=== PATIENT | female | born 1940 | race Caucasian/White ===

== ENCOUNTER 2018-01-04 05:45 | Day surgery (SDC) | payer OTHER ==
[~2018-01-04 05:45] MED LIST: CARAFATE SU1 G/10 ML PO; CIPRO500 MG PO; EVISTA60 MG PO; FOLIC ACID/B-6/1 TAB PO; LEVSIN/SL0.125 MG PO; NEURIN SL; NEXIUM2.5 MG PO; PROTONIX40 MG PO; SYNTHROID75 MCG PO; XALATAN IO; ZOFRAN ODT4 MG/UDTAB PO
== END 2018-01-04 09:50 | disposition home or self-care (01) ==
LOC: CIR.AMB 05:45
DX: K51.00 Ulcerative (chronic) pancolitis without complications (principal); Z08 Encounter for follow-up examination after completed treatment for malignant neoplasm

== ENCOUNTER 2020-01-31 09:11 | Outpatient (CLI) | payer OTHER | END 2020-01-31 09:17 | disposition home or self-care (01) | LOC: TOM 09:11 | PROVIDERS: ATTEND Surgery | DX: K44.9 Diaphragmatic hernia without obstruction or gangrene (principal) ==

== ENCOUNTER 2020-03-03 09:20 | Outpatient (CLI) | payer OTHER | END 2020-03-03 09:28 | disposition home or self-care (01) | LOC: RAD 09:20 | PROVIDERS: ATTEND Orthopaedic Surgery Sports Medicine | DX: M25.561 Pain in right knee (principal); M25.562 Pain in left knee ==

== ENCOUNTER 2020-03-06 07:25 | Outpatient (CLI) | payer OTHER | END 2020-03-06 07:26 | disposition home or self-care (01) | LOC: NUCLEAR 07:25 | PROVIDERS: ATTEND Internal Medicine Cardiovascular Disease | DX: R06.02 Shortness of breath (principal); I44.7 Left bundle-branch block, unspecified | CPT/HCPCS: 78452; 93017; A9500; J0153 ==

== ENCOUNTER 2020-07-01 07:52 | Outpatient (CLI) | payer OTHER | END 2020-07-01 08:02 | disposition home or self-care (01) | LOC: MAMO-SONO 07:52 | DX: N60.01 Solitary cyst of right breast (principal); Z12.31 Encounter for screening mammogram for malignant neoplasm of breast; R92.0 Mammographic microcalcification found on diagnostic imaging of breast ==

== ENCOUNTER 2020-08-27 06:00 | Day surgery (SDC) | payer OTHER | END 2020-08-27 10:10 | disposition home or self-care (01) | LOC: AMB-ENDOS 06:00 | PROVIDERS: ATTEND Surgery | DX: K52.89 Other specified noninfective gastroenteritis and colitis (principal); Z20.828 Contact with and (suspected) exposure to other viral communicable diseases ==

== ENCOUNTER 2021-03-01 10:36 | Outpatient (CLI) | payer OTHER | END 2021-03-01 10:41 | disposition home or self-care (01) | LOC: RAD 10:36 | PROVIDERS: ATTEND Orthopaedic Surgery Sports Medicine | DX: M25.561 Pain in right knee (principal); M25.562 Pain in left knee ==

== ENCOUNTER 2021-04-12 08:47 | Outpatient (CLI) | payer OTHER | END 2021-04-12 08:56 | disposition home or self-care (01) | LOC: RAD 08:47 | PROVIDERS: ATTEND Internal Medicine Cardiovascular Disease | DX: R10.84 Generalized abdominal pain (principal) ==

== ENCOUNTER 2021-04-13 07:32 | Outpatient (CLI) | payer OTHER | END 2021-04-13 07:34 | disposition home or self-care (01) | LOC: SONOGRAMA 07:32 | PROVIDERS: ATTEND Internal Medicine Cardiovascular Disease | DX: Q61.02 Congenital multiple renal cysts (principal); R10.84 Generalized abdominal pain ==

== ENCOUNTER 2021-05-04 13:43 | Outpatient (CLI) | payer OTHER | END 2021-05-10 07:41 | disposition home or self-care (01) | LOC: LAB 13:43 | PROVIDERS: ATTEND Radiology Diagnostic Radiology | DX: R31.0 Gross hematuria (principal) ==

== ENCOUNTER → 2021-05-10 | Outpatient (CLI) | payer OTHER | END | disposition home or self-care (01) | LOC: TOM 07:15 | PROVIDERS: ATTEND Internal Medicine | DX: Q61.8 Other cystic kidney diseases (principal); I70.8 Atherosclerosis of other arteries; K21.9 Gastro-esophageal reflux disease without esophagitis; K44.9 Diaphragmatic hernia without obstruction or gangrene; R31.0 Gross hematuria; D59.8 Other acquired hemolytic anemias; K51.90 Ulcerative colitis, unspecified, without complications | CPT/HCPCS: 74178; Q9965 ==

== ENCOUNTER 2021-07-06 13:20 | Outpatient (CLI) | payer OTHER | END 2021-07-06 13:31 | disposition home or self-care (01) | LOC: MAMO-SONO 13:20 | DX: N63.11 Unspecified lump in the right breast, upper outer quadrant (principal); N63.12 Unspecified lump in the right breast, upper inner quadrant; Z12.31 Encounter for screening mammogram for malignant neoplasm of breast ==

== ENCOUNTER 2021-09-13 10:19 | Outpatient (CLI) | payer OTHER | END 2021-09-13 13:03 | disposition home or self-care (01) | LOC: RAD 10:19 | PROVIDERS: ATTEND Orthopaedic Surgery Sports Medicine | DX: M25.561 Pain in right knee (principal); M25.562 Pain in left knee ==

== ENCOUNTER 2022-01-07 08:13 | Outpatient (CLI) | payer OTHER | END 2022-01-07 08:22 | disposition home or self-care (01) | LOC: SONOGRAMA 08:13 | PROVIDERS: ATTEND Internal Medicine Cardiovascular Disease | DX: R10.9 Unspecified abdominal pain (principal); N28.9 Disorder of kidney and ureter, unspecified; N28.1 Cyst of kidney, acquired; R31.1 Benign essential microscopic hematuria ==

== ENCOUNTER 2022-07-08 08:50 | Outpatient (CLI) | payer OTHER | END 2022-07-08 09:04 | disposition home or self-care (01) | LOC: MAMO-SONO 08:50 | PROVIDERS: ATTEND Surgery | DX: Z12.31 Encounter for screening mammogram for malignant neoplasm of breast (principal); N63.0 Unspecified lump in unspecified breast ==

== ENCOUNTER 2022-09-05 05:20 | Day surgery (SDC) | payer OTHER | END 2022-09-05 10:15 | disposition home or self-care (01) | LOC: AMB-ENDOS 05:20 | PROVIDERS: ATTEND Surgery | DX: K51.00 Ulcerative (chronic) pancolitis without complications (principal); Z85.038 Personal history of other malignant neoplasm of large intestine; Z20.822 Contact with and (suspected) exposure to COVID-19; Z91.018 Allergy to other foods ==

== ENCOUNTER 2022-09-27 10:17 | Outpatient (CLI) | payer OTHER | END 2022-09-27 10:23 | disposition home or self-care (01) | LOC: RAD 10:17 | PROVIDERS: ATTEND Internal Medicine Pulmonary Disease | DX: J45.20 Mild intermittent asthma, uncomplicated (principal); R06.02 Shortness of breath ==

== ENCOUNTER 2023-08-07 08:57 | Outpatient (CLI) | payer OTHER | END 2023-08-07 09:02 | disposition home or self-care (01) | LOC: MAMO-SONO 08:57 | DX: Z12.31 Encounter for screening mammogram for malignant neoplasm of breast (principal) ==

== ENCOUNTER 2023-09-15 08:04 | Outpatient (CLI) | payer OTHER | END 2023-09-15 08:16 | disposition home or self-care (01) | LOC: TOM 08:04 | DX: R31.0 Gross hematuria (principal) | CPT/HCPCS: 74177; Q9965 ==

== ENCOUNTER → 2023-11-14 08:27 | Outpatient (CLI) | payer OTHER | END | disposition home or self-care (01) | LOC: NUCLEAR 08:00 | PROVIDERS: ATTEND Internal Medicine | DX: G45.9 Transient cerebral ischemic attack, unspecified (principal) ==

== ENCOUNTER 2024-09-23 06:17 | Day surgery (SDC) | payer OTHER ==
[2024-09-23] MEDS ORDERED: NALOXONE HCL 0.4 MG/ML AMPUL IV STA (09:19)
[2024-09-23] MEDS ORDERED: FLUMAZENIL 0.5 MG/5 ML ML IV STA (09:19)
[2024-09-23] MEDS ORDERED: fentaNYL CITRATE 50 MCG/ML AMPUL IV PUSH ONE (09:30)
[2024-09-23] MEDS ORDERED: DIPHENHYDRAMINE HCL 50 MG/ML VIAL 1ML IV ONE (09:30)
[2024-09-23] MEDS ORDERED: MIDAZOLAM HCL 2 MG/2 ML VIAL IV ONE (09:30)
== END 2024-09-23 11:20 | disposition home or self-care (01) ==
LOC: AMB-ENDOS 06:17
PROVIDERS: ATTEND Surgery
DX: K51.00 Ulcerative (chronic) pancolitis without complications (principal); Z93.2 Ileostomy status; Z85.038 Personal history of other malignant neoplasm of large intestine; Z88.6 Allergy status to analgesic agent; Z91.02 Food additives allergy status; Z91.013 Allergy to seafood